=== PATIENT | male | born 1995 | race Caucasian/White ===

== ENCOUNTER 2017-07-02 14:53 | Emergency (ER) | payer BC ==
[2017-07-02] MEDS ORDERED: NALOXONE HCL 2 MG/2 ML SYR IVP ONE (15:05)
--- NOTE | 2017-07-02 15:05 | EDPHY ---
H & P Time Seen by Provider: 07/02/17 14:58 HPI/ROS: Chief complaint. Heroin overdose HPI. 22-year-old male here by EMS after being found in a locked car cyanotic and not breathing. He did have a pulse. EMS broken to his car and administered Narcan with prompt response. Patient admits to IV heroin. He denies any other drugs. He does admit to drinking alcohol last night. He has been sober for a period time but fell off the wan today as it is his birthday. Currently he is alert and oriented denies chest discomfort or trouble breathing or abdominal pain. ROS Constitutional. no fever/chills, no weakness Eyes. no problems with vision ENT. no sore throat, no nasal drainage Cardiovascular. no chest pain Respiratory. no shortness of breath, no cough Abdominal. no abdominal pain, no nausea/vomiting, no diarrhea . no problems urinating MS. no calf pain/swelling, no neck/back pain, no joint pain Skin. no rash Lymph. no swollen glands Neuro. no headache, no dizziness, no difficulty walking or with speech Current review of systems are normal however again EMS noted that the patient was cyanotic and not breathing. Past Medical/Surgical History: IV drug use Social History: Single, nonsmoker, alcohol last night Physical Exam: General Appearance: Alert well-developed male mild distress vital signs are stable Eyes: Pupils equal and round no pallor or injection. ENT, Mouth: Mucous membranes are moist. Respiratory: There are no retractions, lungs are clear to auscultation. Cardiovascular: Regular rate and rhythm. Gastrointestinal: Abdomen is soft and nontender, no masses, bowel sounds normal. Neurological: Awake and alert, sensory and motor exams grossly normal. Skin: Warm and dry, no rashes. Fresh track yari right antecubital fossa Musculoskeletal: Neck is supple nontender. Extremities symmetrical, full range of motion. Psychiatric: Patient is oriented X 3, there is no agitation. Constitutional: Initial Vital Signs Temperature (C) 36.6 C 07/02/17 15:13 Heart Rate 104 H 07/02/17 15:13 Respiratory Rate 18 07/02/17 15:13 Blood Pressure 131/95 H 07/02/17 15:13 O2 Sat (%) 100 07/02/17 15:13 O2 Delivery Mode Room Air Allergies/Adverse Reactions: No Known Allergies Allergy (Unverified 07/02/17 15:04) Home Medications: Medication Instructions Recorded NK [No Known Home Meds] 07/02/17 Medical Decision Making - Diagnostics EKG Interpretation: EKG the interpreted by me shows normal sinus rhythm normal interval and axis. QRS is normal there is no significant ST elevation or depression. There is no arrhythmia. The rate is 96 Procedures: IV normal saline, monitor [facility] Department is here and involved ED Course/Re-evaluation: Serial evaluations and patient is a been observed in the emergency department. He has no symptoms . He is ambulatory and conversational. We had case management also see the patient and help give him some resources for opiate treatment. Patient and I discussed treatment plan including criteria for return importance of follow-up and further evaluation. He expresses understanding and agreement Differential Diagnosis: Heroin overdose treated with Narcan. Patient has not had further symptoms during our observation. Departure - Departure Disposition: Home, Routine, Self-Care Clinical Impression: Accidental heroin overdose Qualifiers: Encounter type: initial encounter Qualified Code(s): T40.1X1A - Poisoning by heroin, accidental (unintentional), initial encounter Condition: Good Instructions: Narcotic Abuse (ED) Additional Instructions: Use resources provided to help with treatment for heroin use. No further hair [place] today. Return for worsening symptoms. Referrals: Patient,NotPresent [Unknown] - As per Instructions Genesis Bright MD [Medical Doctor] - As per Instructions
--- NOTE | 2017-07-02 15:11 | CPEKG ---
Heart Rate: 96 RR Interval: 625 P-R Interval: 140 QRSD Interval: 106 QT Interval: 396 QTC Interval: 501 P [place]: 73 QRS [place]: 91 T Wave [place]: 43 EKG Severity - ABNORMAL ECG - EKG Impression: SINUS RHYTHM EKG Impression: PROLONGED QT INTERVAL Electronically Signed By: Maxwell Grace 02-Jul-2017 18:56:23
[2017-07-02 15:22] VITALS: RESP 18; TEMP 97.9
[2017-07-02 16:59] VITALS: BP 137/80; PULSE 97; O2SAT 99
--- NOTE | 2017-07-02 17:01 | ASMTCMCOM ---
CM Note CM Note Notes: Met with patient to discuss resources for recovery, treatment, etc. Patient admits to history of IV drug use for which he has "been clean off and on for a few years". He admits to being in IP rehab in [place] in the past, does occassionally attend NA/AA meetings, but does not have a "sponsor" or established recovery support group. He lives with his brother in [place] and he states that his brother does not use drugs, although he is "not close to his brother". Patient's family is in [place]. Patient tells me that he is not interested in "rehab" or treatment resources, and that he does have "support" if he reaches out for it. I have provided patient with information for Mental Health Partner's, including their 02/12 crisis line, the [facility] (non medical detox), and harm reduction information/needle exchange. I have also provided patient with a current list of N/AA meetings and on campus support. Patient states that he is currently attending [employer] but is hoping to transfer to . Patient is very tearful and upset about his situation and does appear to have insight into his choices, options, and path should he continue with his drug use. He admits to drinking alcohol socially and smoking some marijuanna as well. He has lost friends to IV drug use and is open and emotional about this. Patient states that he will call his mom and has thought about returning home to [place], "but that is where all of this started". He tells me he has a friend who is strong in his own recovery in [place] and that he would be a good resource to reach out to. Andriy is insured (out of state [employer]). He appears to know his options. He is mostly concerned about getting his brothers car out of "impond" and is making calls for a ride. Date Signed: 07/02/2017 05:00 PM Electronically Signed By:Melia Armstrong RN
== END 2017-07-02 17:20 | disposition home or self-care (01) ==
LOC: EEVIPCON 14:53
DX: T40.1X1A Poisoning by heroin, accidental (unintentional), initial encounter (principal)
CPT/HCPCS: J2310